=== PATIENT | male | born 1940 | race Caucasian/White ===

== ENCOUNTER → 2019-12-13 | Outpatient (CLI) | payer MEDICARE, BC | LOC: COL.VAS 12:48 | DX: M79.89 Other specified soft tissue disorders (principal) ==

== ENCOUNTER → 2023-07-17 | Outpatient (CLI) | payer MEDICARE, BC ==
[~2023-07-17] MED LIST: ASPIRIN E.C. 8181 MG PO; BREZTRI AEROS10.7 GM IH; CALCIUM 600MG+D1 TAB PO; COLCRYS0.6 MG; CORDARONE200 MG/TAB PO; COZAAR 25MG25 MG/TAB PO; DIOVAN 80MG80 MG PO; ELIQUIS 5MG PO; FISH OIL 500 M1 EAC1 PO; INDOCIN 25MG CA25 MG PO; IPRATROPIUM BROM3 M1 IH; KLONOPIN 0.5MG0.5 MG PO; MIRAPEX 1MG PO; NATURAL POTASS595 MG PO; NORVASC 5MG5 MG/TAB PO; PRAVACHOL 20MG20 MG PO; PREDNISONE10 MG PO; TOPROL XL 50MG50 MG PO; VITAMIN C500 MG PO; ZYLOPRIM 300MG300 MG PO; ZYRTEC 10MG10 MG; ZYTIGA500 MG
== END ==
LOC: COL.RAD 10:55
DX: I50.20 Unspecified systolic (congestive) heart failure (principal)